=== PATIENT | female | born 1960 | race Caucasian/White ===

== ENCOUNTER 2025-08-16 12:50 | Observation (INO) | payer OTHER, SELFPAY ==
[2025-08-16] VITALS (24 sets, daily range): BP systolic 123–152; BP diastolic 61–88; PULSE 60–93; RESP 11–61; TEMP 36.4; O2SAT 97–100; BMI 25.9
--- NOTE | ~2025-08-16 | XR_ITS ---
Examination: XR chest 1V portable Clinical History: Pain Comparison: None Technique: Portable AP Findings: Heart size normal. Lungs clear. No acute bony abnormality. IMPRESSION: 1. No acute cardiopulmonary findings given portable technique. Reviewed, dictated and finalized at location R.
--- NOTE | ~2025-08-16 | CT_ITS ---
EXAMINATION: CT cervical spine wo con COMPARISON: None HISTORY: Head trauma TECHNIQUE: Axial images were obtained through the spine without IV contrast. Coronal, sagittal reconstruction images were obtained from the axial views. CT scan performed using dose optimization techniques including the following automated exposure control; adjustment of mA and/or kV; use of iterative reconstruction technique. Automatic exposure control was used to reduce radiation dose. Permanent radiation dose record is archived to PACS. FINDINGS: The vertebral heights are intact. No fracture or subluxation. The disc heights are intact. Soft tissues unremarkable. Impression: No acute abnormality. Reviewed, dictated and finalized at location A. Impression: No acute abnormality.
--- NOTE | ~2025-08-16 | CT_ITS ---
EXAMINATION: CT brain wo con DATE: 08/16/2025 13:35 INDICATION: Head trauma. Syncope. TECHNIQUE: Computed tomography (CT) of the head was performed without intravenous contrast. Sagittal and coronal reconstructions were performed. The mA was adjusted according to patient size. Iterative reconstruction technique was employed. The dose-length product was 605.33 mGy-cm. COMPARISON: None FINDINGS: No fracture. No acute intracranial hemorrhage, acute infarction or abnormal extra axial fluid collection. There is mild scattered white matter hypoattenuation consistent with chronic small vessel ischemic disease. Ventricles are normal and symmetric. No mass/mass effect. Changes of bilateral intraocular lens replacement. The orbits, paranasal sinuses and mastoid air cells are normal. IMPRESSION: 1. Normal aging brain. No fracture or acute intracranial process. Reviewed, dictated and finalized at location A.
--- NOTE | 2025-08-16 12:51 | ECG_ITS ---
Test Date: 2025-08-16 12:58:49 Measurements Intervals [place] Rate: 73 P: 32 IN: 207 QRS: 47 QRSD: 81 T: 39 QT: 419 QTc: 464 Interpretive Statements SINUS RHYTHM MINIMAL ST DEPRESSION [0.025+ mV ST DEPRESSION] ABNORMAL ECG No previous ECG available for comparison Electronically Signed On 08-16-2025 13:08:07 CDT by Elie Trejo M.D.
--- NOTE | 2025-08-16 13:06 | PC.NURSE ---
pt spouse continues to escalate his voice and yell at this diesel truck driver. Spouse verbalizing that he is an plant safety engineer and will gabrielle this hospital if she dies and or anything else happens to her while he is stuck out here and waiting to be taken in to the back. 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 Pt spouse continues to escalate, refuse to move from intake check in area so we may check in another pt. Pt spouse continues to verbalize he will gabrielle this rn. Pt spouse verbally aggressive to all staff including security.
--- NOTE | 2025-08-16 13:15 | ED.SYNCOPE ---
HPI - Syncope General Chief Complaint: Syncope Stated Complaint: syncope Time Seen by Provider: 08/16/25 13:15 Source: patient Mode of arrival: EMS Limitations: no limitations History of Present Illness HPI narrative: 65 years old white female came from home by ambulance with syncope. is telling me that patient was standing iron in close suddenly got dizzy, lightheadedness, then felt like going to pass out, tried to assist her to the floor, lost her balance and hit the left side of her head on the ground. Loss of consciousness for less than 10 seconds. Patient denies biting her tongue or urine incontinence. Currently feeling clammy, diaphoretic, dizziness lightheadedness. Patient report having similar symptoms often on for the last 14 years after diagnosis of menopause, today is the longest duration ever. Patient report associated nausea and vomiting. Closing eyes make her feel less dizzy at this time opening eyes make more dizziness Related Data Home Medications ?Medication ?Instructions ?Recorded ?Confirmed ?Last Taken ?Type escitalopram oxalate 10 mg tablet 10 mg PO DAILY 08/28/21 11/18/22 Unknown History (Lexapro) cholecalciferol (vitamin D3) 25 25 mcg PO DAILY 11/02/22 11/18/22 Unknown History mcg (1,000 unit) capsule rosuvastatin 10 mg tablet 10 mg PO DAILY 11/02/22 11/18/22 Unknown History magnesium 200 mg tablet 200 mg PO DAILY 11/18/22 11/18/22 Unknown History Allergies Allergy/AdvReac Type Severity Reaction Status Date / Time No Known Allergies Allergy Verified 11/18/22 09:46 Review of Systems Review of Systems: All systems reviewed & are unremarkable except as noted in HPI and below PMFSH Past Medical History Medical History Arthritis of knee, right History of lipoma removed 2021 Hyperlipidemia Vaginal delivery x2 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 Duct cell carcinoma Surgical History Surgical History History of lumpectomy right breast History of partial thyroidectomy [place] teeth extracted History of oral surgery Family History Family History Father Hypertension Heart problem Mother Depression Anxiety Thyroid disorder Alzheimer disease Hyperlipidemia Other Asthma child Grandparent Stomach cancer Hypertension Heart problem Hyperlipidemia Grandparent Cervical cancer Hypertension Cerebrovascular accident Social History Social History Smoking status: Never smoker Alcohol intake: current Drinks per week: 1 Substance use: never Living arrangements: with family Occupation/Education: retired Gender identity (if verbalized by the patient): Female Exam Narrative: General appearance: Well-developed, well-nourished Skin: Normal color, clammy skin Head: Normocephalic, left eyebrow bruises, hematoma Eyes: Clear conjunctiva ENT: Oropharynx normal, ears normal, nose normal Neck: Supple, nontender Chest and respiratory: Airway patent, no respiratory distress, no accessory muscle use Heart: Regular rate/rhythm Abdomen: Soft, nontender, no organomegaly, quiet bowel sounds Vascular: Normal peripheral pulses, normal capillary refill. Musculoskeletal: Normal range of motion, nontender back Neurologic: Alert and oriented ?3, [employer] is normal as tested, no gross motor deficit Course Vital Signs Vital signs: Vital Signs Pulse Rate 67 08/16/25 13:00 Respiratory Rate 12 08/16/25 13:00 Blood Pressure 145/78 H 08/16/25 13:00 Pulse Oximetry 100 08/16/25 13:00 Oxygen Delivery Room Air 08/16/25 13:00 Pulse Rate 73 08/16/25 14:30 Respiratory Rate 39 H 08/16/25 14:32 Blood Pressure 129/78 08/16/25 14:32 Pulse Oximetry 100 08/16/25 14:32 Oxygen Delivery Room Air 08/16/25 13:02 MDM - Syncope MDM Narrative Medical decision making narrative: Patient came to the ED with dizziness, vomiting, near-syncope, syncope prior to arrival Vital signs are stable Physical examination showing weak looking patient, pale, unable to open eyes because dizziness gets worse. Differential diagnosis include vertigo, orthostatic hypertension, cardiac arrhythmia, intracranial pathology, electrolyte imbalance, dehydration, urinary tract infection Blood workup today includes CBC, CMP, troponin, CPK, TSH showed no significant abnormality Chest x-ray showed no acute abnormality CT head without contrast showed no acute abnormality Patient's symptom resolved after Valium IV, Antivert and Zofran. 5 mg Valium IV caused hypoxia, patient required oxygen supplement at that time for 20 minutes then oxygen moved and saturation currently 100% on room air. Patient feels much better more awake, more alert and would like to have a meal. Admit to hospitalist Differential Diagnosis Differential diagnosis: Likely other (As above) Medical Records Attestation: I reviewed the patient's medical records. Lab Data Attestation: I reviewed the patient's lab results. 08/16/25 13:22 08/16/25 13:22 Labs: Lab Results 08/16/25 08/16/25 08/16/25 Range/Units 13:22 13:24 14:21 WBC 5.2 (4.5-10.0) K/mm3 RBC 4.57 (4.2-5.4) M/mm3 Hgb 14.0 (12.0-15.0) g/dL Hct 41.6 (37.0-47.0) % MCV 91.0 (80-100) fl MCH 30.6 (26-34) pg MCHC 33.7 (32-36) g/dl RDW 12.3 (11.5-14.5) % Plt Count 328 (150-375) k/mm3 MPV 9.4 (7.4-10.4) fl Immature Gran % (Auto) 0.4 (0-0.5) % Neut % (Auto) 42.9 L (45.5-73.1) % Lymph % (Auto) 44.3 H (18.3-44.2) % [place] % (Auto) 8.9 H (2.6-8.5) % Eos % (Auto) 2.9 (0-4.4) % Baso % (Auto) 0.6 (0.2-1.2) % Lymph # (Auto) 2.28 (0.9-3.2) K/mm3 [place] # (Auto) 0.5 (0.1-0.6) K/mm3 Eos # (Auto) 0.2 (0-0.3) K/mm3 Baso # (Auto) 0.0 (0.0-0.1) K/mm3 Abs Immat Gran (auto) 0.02 (0.00-0.031) K/mm3 Absolute Neuts (auto) 2.2 (1.3-6.7) K/mm3 Absolute Nucleated RBC 0.000 (0.0-0.012) K/mm3 Nucleated RBC % 0.0 (0.0-0.2) % PT 12.9 (11.1-14.7) Seconds INR 1.0 APTT 24.4 (22.3-36.8) Seconds Sodium 138 (137-145) mmol/L Potassium 3.7 (3.4-5.0) mmol/L Chloride 105 (98-107) mmol/L Carbon Dioxide 21 L (22-30) mmol/L Anion Gap 12 (4-12) mmol/L BUN 16 (7-17) mg/dL Creatinine 0.69 L (0.7-1.0) mg/dL Estim Creat Clear Calc 61 ml/min Estimated GFR > 60 (59 - ) Glucose 164 H (65-110) mg/dL Calcium 9.8 (8.4-10.2) mg/dL Total Bilirubin 1.4 H (0.2-1.3) mg/dL AST 33 (14-36) U/L ALT 27 (6-35) U/L Alkaline Phosphatase 71 (38-126) U/L Total Creatine Kinase 73 Cancelled (30-135) U/L Troponin I < 0.012 Cancelled (0.000-0.034) ng/mL Total Protein 7.4 (6.3-8.2) g/dL Albumin 4.5 (3.5-5.1) g/dL TSH 3.210 Cancelled (0.465-4.680) uIU/mL Urine Color Yellow (Yellow) Urine Appearance Clear (Clear) Urine pH 6.5 (5.0-9.0) Ur Specific [place] 1.022 (1.001-1.035) Urine Protein Negative (Negative) mg/dL Urine Glucose (UA) Negative (Negative) mg/dL Urine Ketones 2+ H (Negative) mg/dL Ur Blood (Man) Negative (Negative) Urine Nitrate Negative (Negative) Urine Bilirubin Negative (Negative) Urine Urobilinogen 1.0 (<2.0) mg/dL Leukocyte Esterase Rfl Negative (Negative) TOMY/UL Urine Opiates Screen (Negative) Urine Methadone Screen Ur Barbiturates Screen Ur Phencyclidine Scrn (Negative) Ur Amphetamine Screen U Benzodiazepines Scrn (Negative) Urine Cocaine Screen (Negative) U Cannabinoids Screen Ethyl Alcohol < 10 (<10) mg/dL 08/16/25 Range/Units 14:22 WBC (4.5-10.0) K/mm3 RBC (4.2-5.4) M/mm3 Hgb (12.0-15.0) g/dL Hct (37.0-47.0) % MCV (80-100) fl MCH (26-34) pg MCHC (32-36) g/dl RDW (11.5-14.5) % Plt Count (150-375) k/mm3 MPV (7.4-10.4) fl Immature Gran % (Auto) (0-0.5) % Neut % (Auto) (45.5-73.1) % Lymph % (Auto) (18.3-44.2) % [place] % (Auto) (2.6-8.5) % Eos % (Auto) (0-4.4) % Baso % (Auto) (0.2-1.2) % Lymph # (Auto) (0.9-3.2) K/mm3 [place] # (Auto) (0.1-0.6) K/mm3 Eos # (Auto) (0-0.3) K/mm3 Baso # (Auto) (0.0-0.1) K/mm3 Abs Immat Gran (auto) (0.00-0.031) K/mm3 Absolute Neuts (auto) (1.3-6.7) K/mm3 Absolute Nucleated RBC (0.0-0.012) K/mm3 Nucleated RBC % (0.0-0.2) % PT (11.1-14.7) Seconds INR APTT (22.3-36.8) Seconds Sodium (137-145) mmol/L Potassium (3.4-5.0) mmol/L Chloride (98-107) mmol/L Carbon Dioxide (22-30) mmol/L Anion Gap (4-12) mmol/L BUN (7-17) mg/dL Creatinine (0.7-1.0) mg/dL Estim Creat Clear Calc ml/min Estimated GFR (59 - ) Glucose (65-110) mg/dL Calcium (8.4-10.2) mg/dL Total Bilirubin (0.2-1.3) mg/dL AST (14-36) U/L ALT (6-35) U/L Alkaline Phosphatase (38-126) U/L Total Creatine Kinase (30-135) U/L Troponin I (0.000-0.034) ng/mL Total Protein (6.3-8.2) g/dL Albumin (3.5-5.1) g/dL TSH (0.465-4.680) uIU/mL Urine Color (Yellow) Urine Appearance (Clear) Urine pH (5.0-9.0) Ur Specific [place] (1.001-1.035) Urine Protein (Negative) mg/dL Urine Glucose (UA) (Negative) mg/dL Urine Ketones (Negative) mg/dL Ur Blood (Man) (Negative) Urine Nitrate (Negative) Urine Bilirubin (Negative) Urine Urobilinogen (<2.0) mg/dL Leukocyte Esterase Rfl (Negative) TOMY/UL Urine Opiates Screen Negative (Negative) Urine Methadone Screen Pending Ur Barbiturates Screen Pending Ur Phencyclidine Scrn Negative (Negative) Ur Amphetamine Screen Pending U Benzodiazepines Scrn Negative (Negative) Urine Cocaine Screen Negative (Negative) U Cannabinoids Screen Pending Ethyl Alcohol (<10) mg/dL Imaging Data Radiologist's impression: Impressions Head CT 08/16/25 13:46 IMPRESSION: 1. Normal aging brain. No fracture or acute intracranial process. Chest X-Ray 08/16/25 13:56 IMPRESSION: 1. No acute cardiopulmonary findings given portable technique. ECG Data EKG #1: Attestation: I personally reviewed and interpreted this ECG as follows: ECG completion date: 08/16/25 Interpretation: Normal sinus rhythm 73 beats per minute, minimal ST-T depression, abnormal EKG, no previous EKG available for comparison Critical Care Time Critical Care Time Critical Care Time: Yes Total Critical Care Time: 30 Discharge Plan Discharge Clinical Impression: Syncope, Vertigo Patient Disposition: Still a Patient Condition: Improved Additional Instructions: Admit to hospitalist Patient Language: Nepali Prescriptions: No Action escitalopram oxalate [Lexapro] 10 mg tablet 10 mg PO DAILY rosuvastatin 10 mg tablet 10 mg PO DAILY cholecalciferol (vitamin D3) 25 mcg (1,000 unit) capsule 25 mcg PO DAILY magnesium 200 mg tablet 200 mg PO DAILY valacyclovir 1 gram tablet 1,000 mg PO DAILY Qty: 90 2RF Follow-up/Referrals: PHYSICIAN NOT ON STAFF,NONSTAFF [Non-Staff]
[2025-08-16 13:36] LABS: Hematocrit 41.6 % (37.0-47.0); Hemoglobin 14.0 g/dL (12.0-15.0); Immature Granulocyte Percent A 0.4 % (0-0.5); Lymphocytes Absolute Auto 2.28 K/mm3 (0.9-3.2); Mean Corpuscular HGB Conc 33.7 g/dl (32-36); Mean Corpuscular Hemoglobin 30.6 pg (26-34); Mean Corpuscular Volume 91.0 fl (80-100); Nucleated Red Blood Cells Absolute Auto 0.000 K/mm3 (0.0-0.012); Nucleated Red Blood Cells Perc 0.0 % (0.0-0.2); Platelet Count Result 328 k/mm3 (150-375); Red Blood Count 4.57 M/mm3 (4.2-5.4); White Blood Count 5.2 K/mm3 (4.5-10.0)
[2025-08-16] MEDS: diazePAM INJ (*CRX) 10 MG/2 ML SYRINGE 5 MG IV PUSH (13:38)
[2025-08-16] MEDS: ONDANSETRON INJ 4 MG/2 ML VIAL IV PUSH (13:38)
[2025-08-16] MEDS: MECLIZINE HCL 25 MG TABLET PO ×2 (13:39→16:34)
[2025-08-16] MEDS: SODIUM CHLORIDE 0.9% IV 1,000 ML 999 ML IV CONT (13:40)
[2025-08-16 13:47] LABS: Alanine Aminotransferase 27 U/L (6-35); Albumin Level 4.5 g/dL (3.5-5.1); Alkaline Phosphatase 71 U/L (38-126); Anion Gap 12 mmol/L (4-12); Aspartate Amino Transferase 33 U/L (14-36); Bilirubin,Total 1.4 mg/dL (0.2-1.3); Blood Urea Nitrogen 16 mg/dL (7-17); Calcium 9.8 mg/dL (8.4-10.2); Carbon Dioxide 21 mmol/L (22-30); Chloride 105 mmol/L (98-107); Creatine Kinase 73 U/L (30-135); Estimated CRCL calculation 61 ml/min; Estimated Glomerular Filt Rate > 60; Glucose 164 mg/dL (65-110); Potassium 3.7 mmol/L (3.4-5.0); Sodium 138 mmol/L (137-145); Total Protein 7.4 g/dL (6.3-8.2)
[2025-08-16 13:57] LABS: INR 1.0; Partial Thromboplastin Time 24.4 Seconds (22.3-36.8); Prothrombin Time 12.9 Seconds (11.1-14.7)
[2025-08-16 13:59] LABS: Troponin I < 0.012 ng/mL (0.000-0.034)
--- NOTE | 2025-08-16 14:08 | PC.NURSE ---
patient was having apnic episodes, states that she reacts poorly to valium- prior to med administration this rn and the physician discussed that the patient would be getting the valium both patient and verbalized understanding of the medication and use of the medication
[2025-08-16 14:18] LABS: Thyroid Stimulating Hormone 3.210 uIU/mL (0.465-4.680)
[2025-08-16 14:29] LABS: Add Urine Microscopic? NO; Appearance Urine Clear (Clear); Glucose Urine UA Negative (Negative); Leukocyte Esterase Ur Negative LEU/UL (Negative); Nitrate Urine Negative (Negative); Specific Grav Ur 1.022 (1.001-1.035)
[2025-08-16 15:08] LABS: Cannabinoid Screen Urine Negative (Negative)
--- NOTE | 2025-08-16 15:24 | PC.NURSE ---
standard reg diet dinner tray ordered
--- NOTE | 2025-08-16 16:02 | P.HP_ITS ---
H&P: HPI History of Present Illness Date/Time: 08/16/25 16:02 Chief Complaint: Syncope Narrative: 65-year-old female past medical history of hyperlipidemia and duct cell carcinoma presents the hospital syncope. Patient was standing iron in close when all of sudden she became dizzy and passed out. Patient states that the more she did not eat however at the time she was not feeling hungry. Patient states that sometime she gets dizzy with yoga and Pilates. Patient still complains of severe weakness however dizziness has improved. Denies nausea vomiting fever chills. Lab work shows elevated glucose at 164,, CBC, BMP within normal limits, urinary toxicology negative ethanol level negative, EKG shows sinus rhythm with minimal ST depression. Head CT with no acute findings, neck CT with no acute findings. Review of Systems Review of Systems: 12 systems were reviewed and are negativ e except for as per HPI. 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 Duct cell carcinoma Surgical History Surgical History History of lumpectomy right breast History of partial thyroidectomy [place] teeth extracted History of oral surgery Family History Family History Father Hypertension Heart problem Mother Depression Anxiety Thyroid disorder Alzheimer disease Hyperlipidemia Other Asthma child Grandparent Stomach cancer Hypertension Heart problem Hyperlipidemia Grandparent Cervical cancer Hypertension Cerebrovascular accident Social History Social History Smoking status: Never smoker Alcohol intake: current Drinks per week: 2 Substance use: never Lack of Transportation: No Lack of Food: Never True Current Housing: I Have Housing Concerned About Future Housing: No Difficulty Paying Gas/Electric Bills: No Difficulty Paying for Meds: No Currently Unemployed: No Education: Master's Degree or Higher Difficulty w/ Childcare or Family Care: No Living arrangements: with family Occupation/Education: retired Gender identity (if verbalized by the patient): Female Spiritual care concerns: No Meds Home Medications and Allergies Home Medications ?Medication ?Instructions ?Recorded ?Confirmed ?Type rosuvastatin 10 mg tablet 10 mg PO DAILY 11/02/2207/29 History multivitamin (Daily Multi-Vitamin 1 tablet PO DAILY 08/16/25 History tablet) valacyclovir 1 gram tablet 1,000 mg PO DAILY PRN Herpe s flare 08/16/25 08/16/25 History ups Allergies Allergy/AdvReac Type Severity Reaction Status Date / Time diazepam (From Valium) AdvReac Severe Stopped Verified 08/16/25 20:48 Breathing Vital Signs Vital Signs - 24 hr 08/16/25 13:00 08/16/25 13:00 08/16/25 13:00 Pulse Rate 67 68 Respiratory Rate 12 11 L Blood Pressure 145/78 H Pulse Oximetry 100 100 100 Oxygen Delivery Room Air 08/16/25 13:02 08/16/25 13:02 08/16/25 13:02 Pulse Rate 67 66 67 Respiratory Rate 13 12 Blood Pressure 145/78 H 145/78 H Pulse Oximetry 100 100 Oxygen Delivery Room Air 08/16/25 13:20 08/16/25 13:37 08/16/25 13:39 Pulse Rate 60 93 72 Respiratory Rate 19 20 Blood Pressure 152/75 H Pulse Oximetry 100 97 99 Oxygen Delivery 08/16/25 14:00 08/16/25 14:02 08/16/25 14:15 Pulse Rate 72 72 69 Respiratory Rate 28 H 19 14 Blood Pressure 133/69 Pulse Oximetry 100 100 100 Oxygen Delivery 08/16/25 14:17 08/16/25 14:30 08/16/25 14:32 Pulse Rate 69 73 Respiratory Rate 24 H 45 H 39 H Blood Pressure 143/88 H 129/78 Pulse Oximetry 100 100 100 Oxygen Delivery 08/16/25 14:33 08/16/25 14:45 08/16/25 14:47 Pulse Rate 67 69 Respiratory Rate 61 H 24 H 16 Blood Pressure 130/74 Pulse Oximetry 100 99 100 Oxygen Delivery 08/16/25 15:00 08/16/25 15:02 08/16/25 15:15 Pulse Rate 61 71 62 Respiratory Rate 18 17 18 Blood Pressure 137/74 Pulse Oximetry 100 100 Oxygen Delivery 08/16/25 15:17 Pulse Rate 67 Respiratory Rate 16 Blood Pressure 134/78 Pulse Oximetry Oxygen Delivery Exam Narrative: General: well appearing, appears stated age. HEENT: normocephalic, atraumatic. Mucous membranes moist. EOMI, PERRLA, bilateral sclera anicteric, no conjunctival injection. Neck supple without JVD, lymphadenopathy, or bruit. Respiratory: clear to ascultation bilaterally. No rales/rhonic/wheezes. Cardiovascular: Regular rate and rhythm, normal S1-S2 upon ascultation. No murmurs, rubs, or clicks. PMI is nondisplaced, capillary refill less than 3 second. Abdomen: Soft, round, no pulsatile masses, nondistended and nontender. No rebound, no guarding. No CVA tenderness, no hepatosplenomegaly. Bowel sounds present to all four quadrants. No high pitch or tinkling sounds, resonant to percussion. Extremities: No cyanosis, clubbing, or edema present. Pulses are palpable 2/2. Active ROM to all four extremities. Neuro: Alert and orientated x 4. PERRLA. Cranial nerves 2-12 intact without focal deficit. Skin: Warm, dry, and intact, without rash, erythema, or lesion. Psych: pleasant, cooperative, normal speech, normal affect, no hallucinations, no dysarthia H&P: Results Labs Labs: Short CBC 08/16/25 Range/Units 13:22 WBC 5.2 (4.5-10.0) K/mm3 Hgb 14.0 (12.0-15.0) g/dL Hct 41.6 (37.0-47.0) % Plt Count 328 (150-375) k/mm3 BMP 08/16/25 13:22 Sodium 138 Potassium 3.7 Chloride 105 Carbon Dioxide 21 L BUN 16 Creatinine 0.69 L Glucose 164 H Calcium 9.8 Cardiac Enzymes 08/16/25 08/16/25 Range/Units 13:22 13:24 Total Creatine Kinase 73 Cancelled (30-135) U/L Troponin I < 0.012 Cancelled (0.000-0.034) ng/mL Liver Function 08/16/25 Range/Units 13:22 Total Bilirubin 1.4 H (0.2-1.3) mg/dL AST 33 (14-36) U/L ALT 27 (6-35) U/L Alkaline Phosphatase 71 (38-126) U/L Albumin 4.5 (3.5-5.1) g/dL Urine 08/16/25 Range/Units 14:21 Urine Color Yellow (Yellow) Urine Appearance Clear (Clear) Urine pH 6.5 (5.0-9.0) Ur Specific [place] 1.022 (1.001-1.035) Urine Protein Negative (Negative) mg/dL Urine Glucose (UA) Negative (Negative) mg/dL Assessment and Plan Assessment and plan (1) Vertigo: Code(s): R42 - Dizziness and giddiness Status: Acute Assessment and Plan: Meclizine Patient had severe apnea with Valium will DC (2) Syncope: Code(s): R55 - Syncope and collapse Status: Acute Assessment and Plan: TIA versus hypovolemia versus other Telemetry monitoring Echocardiogram pending Fall precautions Orthostatic vital signs MRI pending Frequent neuro checks (3) Hyperglycemia: Code(s): R73.9 - Hyperglycemia, unspecified Status: Acute Assessment and Plan: Hemoglobin A1c pending Quality VTE Prophylaxis VTE prophylaxis: mechanical ordered Hospitalist MIPS Advance Care Plan I have confirmed that the patient's Advanced Care Plan is present, code status is documented, or surrogate decision maker is listed in patient medical record.: Yes Medication Reconciliation I have utilized all available resources to obtain, update and review the patients current medications (includes all prescriptions, OTC, herbals, cannabis, and nutritional supplements).: Yes
--- NOTE | 2025-08-16 16:30 | ADMGEN ---
This patient, Rebel Calles, was admitted to Medical Room 245-. Patient/family oriented to hospital policies and general routines including ID bracelet, bed and alarms, visiting hours, pain management, procedures, bathroom and other care routines, personal items, smoking policy, room service/diet, and visiting hours. Information on how to activate the Rapid Response Team has been discussed. Patient/Family are encouraged to report perceived risks to care and to ask questions if they do not understand what they are told or what they should do.
[2025-08-16] MEDS: ACETAMINOPHEN 325 MG TABLET 650 MG PO (16:34)
--- NOTE | 2025-08-16 17:40 | PC.NURSE ---
report called to Yoshi SEGURA at [phone]
[2025-08-17] VITALS (7 sets, daily range): BP systolic 124–142; BP diastolic 63–73; PULSE 67–86; RESP 18; TEMP 36.5–36.7; O2SAT 100
--- NOTE | 2025-08-17 | ECHO_ITS ---
Patient Info Name: Rebel Calles Age: 65 years : 1960 Gender: Female Ht: 64 in Wt: 150 lbs BSA: 1.77 m2 HR: 70 bpm BP: 124 / 73 mmHg Heart Rhythm: Sinus Rhythm Technical Quality: Good Exam Date: 08/17/2025 11:22 AM Patient Status: O Admit Date: 08/16/2025 Exam Type: CA echo doppler w bubble study Complete two-dimensional, color flow and Doppler transthoracic echocardiogram is performed with agitated saline. Staff Referring Physician: Sulema Ray Production Foreman: Viri Gonzalez Attending Provider: Fabiana Dumas Contrast/Agitated Saline Contrast/Ag. Saline: Agitated Saline Amount: 20.00 ml Administered By: Viri Gonzalez Summary 1. Normal left and right ventricular systolic and diastolic function. 2. Mild sclerosis of the aortic valve with no functional impairment. 3. Trivial mitral regurgitation. Left Ventricle Left ventricular chamber dimension is normal. Left ventricular systolic function is normal, estimated at 60-65. The left ventricular diastolic function is normal. Right Ventricle Right ventricular chamber dimension is normal. Left Atria Left atrial chamber dimension is normal. Right Atria Right atrial chamber dimension is normal. Atrial Septum Intact interatrial septum visualized by agitated saline imaging. Aortic Valve The aortic valve is trileaflet. There is mild aortic valve sclerosis. Pulmonic Valve The pulmonic valve is normal. Mitral Valve The mitral valve has normal leaflets. There is trace mitral valve regurgitation. Tricuspid Valve The tricuspid valve leaflets are normal. Pericardium/Pleural The pericardium appears normal. Aorta The aortic root size at the sinus of Valsalva is normal. Left Ventricular Outflow Tract Name Value Normal LVOT 2D LVOT Diameter 2.0 cm LVOT Doppler LVOT Peak Velocity 109 cm/s LVOT Peak Gradient 5 mmHg LVOT Mean Gradient 3 mmHg LVOT VTI 24 cm LVOT VTI/AV VTI Ratio 0.7 LVOT Stroke Volume 74 ml LVOT CO 5.2 l/min LVOT CI 2.9 l/min/m2 Pulmonic Valve Name Value Normal RVOT Doppler RVOT Peak Velocity 83 cm/s RVOT Peak Gradient 3 mmHg PV Doppler PV Peak Velocity 97 cm/s PV Peak Gradient 4 mmHg Mitral Valve Name Value Normal MV Diastolic Function MV E Peak Velocity 84 cm/s MV A Peak Velocity 77 cm/s MV E/A 1.1 MV Decel Time (PW) 243 ms MV Annular TDI MV E/e' (Septal) 7.5 MV E/e' (Lateral) 7.3 MV E/e' (Average) 7.4 Tricuspid Valve Name Value Normal TV Regurgitation Doppler TR Peak Velocity 246 cm/s TR Peak Gradient 24 mmHg Aortic Valve Name Value Normal AV Doppler AV Peak Velocity 148 cm/s AV Peak Gradient 9 mmHg AV Mean Gradient 5 mmHg AV VTI 33 cm AV Area (Cont Eq VTI) 2.2 cm2 >=3.0 AV Area (Cont Eq Erasto) 2.3 cm2 AV DI (Erasto) 0.74 AV Regurgitation 2D LVOT Area 3.0 cm2 Ventricles Name Value Normal LV Dimensions 2D/MM IVS Diastolic Thickness (2D) 0.8 cm 0.6-1.0 LVID Diastole (2D) 4.0 cm 3.8-5.2 LVIW Diastolic Thickness (2D) 1.0 cm 0.6-0.9 LVID Systole (2D) 2.8 cm 2.2-3.5 LVOT Diameter 2.0 cm LV Mass (2D Cubed) 109.90 g 67.00-162.00 LV Mass Index (2D Cubed) 62 g/m2 43-95 Relative Wall Thickness (2D) 0.48 <=0.42 LV Fractional Shortening/Ejection Fraction 2D/MM LV Fractional Shortening (2D) 31 % 27-45 LV EF (2D Teichholz) 59 % LV Diastolic Volume (4C MOD) 80 ml LV EF (4C MOD) 64 % LV Diastolic Volume (2C MOD) 67 ml LV EF (2C MOD) 54 % LV Diastolic Volume (BP MOD) 77 ml 46-106 LV Diastolic Volume Index (BP MOD) 43 ml/m2 29-61 LV Systolic Volume (BP MOD) 30 ml 14-42 LV Systolic Volume Index (BP MOD) 17 ml/m2 8-24 LV EF (BP MOD) 61 % 54-74 LV Diastolic Length (4C) 8.6 cm LV Systolic Length (4C) 7.1 cm LV Stroke Volume (4C MOD) 52 ml Atria Name Value Normal LA Dimensions LA Volume (4C A-L) 24 ml LA Volume (BP A-L) 34 ml Report Signatures
[2025-08-17 05:26] LABS: Hematocrit 37.7 % (37.0-47.0); Hemoglobin 12.3 g/dL (12.0-15.0); Immature Granulocyte Percent A 0.4 % (0-0.5); Lymphocytes Absolute Auto 1.69 K/mm3 (0.9-3.2); Mean Corpuscular HGB Conc 32.6 g/dl (32-36); Mean Corpuscular Hemoglobin 30.8 pg (26-34); Mean Corpuscular Volume 94.5 fl (80-100); Nucleated Red Blood Cells Absolute Auto 0.000 K/mm3 (0.0-0.012); Nucleated Red Blood Cells Perc 0.0 % (0.0-0.2); Platelet Count Result 280 k/mm3 (150-375); Red Blood Count 3.99 M/mm3 (4.2-5.4); White Blood Count 4.9 K/mm3 (4.5-10.0)
[2025-08-17 05:33] LABS: Hemoglobin A1C 5.6 % (<5.7)
[2025-08-17 05:53] LABS: Anion Gap 5 mmol/L (4-12); Blood Urea Nitrogen 14 mg/dL (7-17); Calcium 9.0 mg/dL (8.4-10.2); Carbon Dioxide 24 mmol/L (22-30); Chloride 109 mmol/L (98-107); Estimated CRCL calculation 64 ml/min; Estimated Glomerular Filt Rate > 60; Glucose 96 mg/dL (65-110); Potassium 3.7 mmol/L (3.4-5.0); Sodium 138 mmol/L (137-145)
[2025-08-17] MEDS: ACETAMINOPHEN 325 MG TABLET 650 MG PO (09:13)
--- NOTE | 2025-08-17 10:05 | PC.NURSE ---
RN spoke to MD Boyle and was asked to put consult in for material control associate.
--- NOTE | 2025-08-17 10:07 | P.PNIM_ITS ---
Progress Note: A&P Assessment and Plan (1) Vertigo: Code(s): R42 - Dizziness and giddiness Status: Acute Assessment and Plan: Meclizine monitor (2) Syncope: Code(s): R55 - Syncope and collapse Status: Acute Assessment and Plan: TIA versus hypovolemia versus other Telemetry monitoring Echocardiogram pending Orthostatic vital signs wnl MRI pending No overnight events Cardiology consulted in case patient needs event monitor (3) Hyperglycemia: Code(s): R73.9 - Hyperglycemia, unspecified Status: Acute Assessment and Plan: A1c 5.6 Diabetes ruled out monitor Plan DVT prophylaxis on Sq lovenox Subjective Date/time seen: 08/17/25 10:07 Interval history: Comfortable at bedside Awaiting ECHO, cardiology consulted in case patient needs event monitor Review of Systems Review of Systems: 12 systems were reviewed and are negativ e except for as per HPI. Exam Narrative: General: well appearing, appears stated age. HEENT: normocephalic, atraumatic. Mucous membranes moist. EOMI, PERRLA, bilateral sclera anicteric, no conjunctival injection. Neck supple without JVD, lymphadenopathy, or bruit. Respiratory: clear to ascultation bilaterally. No rales/rhonic/wheezes. Cardiovascular: Regular rate and rhythm, normal S1-S2 upon ascultation. No murmurs, rubs, or clicks. PMI is nondisplaced, capillary refill less than 3 second. Abdomen: Soft, round, no pulsatile masses, nondistended and nontender. No rebound, no guarding. No CVA tenderness, no hepatosplenomegaly. Bowel sounds present to all four quadrants. No high pitch or tinkling sounds, resonant to percussion. Extremities: No cyanosis, clubbing, or edema present. Pulses are palpable 2/2. Active ROM to all four extremities. Neuro: Alert and orientated x 4. PERRLA. Cranial nerves 2-12 intact without focal deficit. Skin: Warm, dry, and intact, without rash, erythema, or lesion. Psych: pleasant, cooperative, normal speech, normal affect, no hallucinations, no dysarthia Objective Data Vital Signs Vital Signs: Vital Signs - 24 hr 08/16/25 13:00 08/16/25 13:00 08/16/25 13:00 Temperature Pulse Rate 67 68 Respiratory Rate 12 11 L Blood Pressure 145/78 H Pulse Oximetry 100 100 100 Oxygen Delivery Room Air 08/16/25 13:02 08/16/25 13:02 08/16/25 13:02 Temperature Pulse Rate 67 66 67 Respiratory Rate 13 12 Blood Pressure 145/78 H 145/78 H Pulse Oximetry 100 100 Oxygen Delivery Room Air 08/16/25 13:20 08/16/25 13:37 08/16/25 13:39 Temperature Pulse Rate 60 93 72 Respiratory Rate 19 20 Blood Pressure 152/75 H Pulse Oximetry 100 97 99 Oxygen Delivery 08/16/25 14:00 08/16/25 14:02 08/16/25 14:15 Temperature Pulse Rate 72 72 69 Respiratory Rate 28 H 19 14 Blood Pressure 133/69 Pulse Oximetry 100 100 100 Oxygen Delivery 08/16/25 14:17 08/16/25 14:30 08/16/25 14:32 Temperature Pulse Rate 69 73 Respiratory Rate 24 H 45 H 39 H Blood Pressure 143/88 H 129/78 Pulse Oximetry 100 100 100 Oxygen Delivery 08/16/25 14:33 08/16/25 14:45 08/16/25 14:47 Temperature Pulse Rate 67 69 Respiratory Rate 61 H 24 H 16 Blood Pressure 130/74 Pulse Oximetry 100 99 100 Oxygen Delivery 08/16/25 15:00 08/16/25 15:02 08/16/25 15:15 Temperature Pulse Rate 61 71 62 Respiratory Rate 18 17 18 Blood Pressure 137/74 Pulse Oximetry 100 100 Oxygen Delivery 08/16/25 15:17 08/16/25 20:00 08/16/25 20:00 Temperature 97.6 F Pulse Rate 67 72 81 Respiratory Rate 16 18 Blood Pressure 134/78 136/84 Pulse Oximetry 97 Oxygen Delivery 08/16/25 20:00 08/16/25 21:17 08/16/25 21:18 Temperature 97.6 F 97.6 F Pulse Rate 68 82 Respiratory Rate 18 18 Blood Pressure 146/74 H 152/84 H Pulse Oximetry 99 100 Oxygen Delivery Room Air 08/16/25 21:23 08/16/25 21:50 08/16/25 23:29 Temperature 97.6 F 97.6 F Pulse Rate 72 73 Respiratory Rate 18 18 Blood Pressure 136/84 123/61 Pulse Oximetry 97 99 99 Oxygen Delivery Autopap 08/17/25 00:00 08/17/25 04:00 08/17/25 04:39 Temperature 97.7 F Pulse Rate 72 67 86 Respiratory Rate 18 Blood Pressure 124/73 Pulse Oximetry 100 Oxygen Delivery 08/17/25 08:00 08/17/25 08:00 08/17/25 08:24 Temperature Pulse Rate 77 80 74 Respiratory Rate Blood Pressure 133/70 128/63 Pulse Oximetry Oxygen Delivery 08/17/25 08:25 08/17/25 08:25 Temperature 98.1 F Pulse Rate 74 77 Respiratory Rate 18 Blood Pressure 128/63 142/69 H Pulse Oximetry 100 Oxygen Delivery Intake/Output Intake/Output: Intake & Output 08/14/25 08/15/25 08/16/25 08/17/25 23:59 23:59 23:59 23:59 Intake Total 1360 630 Output Total 75 Balance 1285 630 Meds/Results Medications: Active Medications Generic Name Dose Route Start Last Admin Trade Name Freq PRN Reason Stop Dose Admin Acetaminophen 650 mg 08/16/25 15:02 08/17/25 09:13 Acetaminophen 325 Mg Tablet PO 650 mg Q4H PRN Administration Mild Pain (1-3) or Fever Meclizine HCl 25 mg 08/16/25 20:52 Meclizine Hcl 25 Mg Tablet PO TID PRN Dizziness Ondansetron HCl 4 mg 08/16/25 15:02 Ondansetron Inj 4 Mg/2 Ml Vial IV PUSH Q4H PRN Nausea Perflutren Lipid Microsphere 0 ml 08/16/25 19:15 Perflutren Lipid Microspheres 1.5 Ml Vial Diluted To 10 Ml Total Volume IV PUSH 08/19/25 19:15 ONCE PRN adequate visualization Protocol Perflutren Lipid Microsphere 0 ml 08/16/25 20:49 Perflutren Lipid Microspheres 1.5 Ml Vial Diluted To 10 Ml Total Volume IV PUSH 08/19/25 20:49 ONCE PRN adequate visualization Protocol Rosuvastatin Calcium 10 mg 08/17/25 09:00 08/17/25 09:14 Rosuvastatin 10 Mg Tablet PO Not Given DAILY KARI Radiology Results: ITS Impressions Head CT 08/16/25 13:46 IMPRESSION: 1. Normal aging brain. No fracture or acute intracranial process. Chest X-Ray 08/16/25 13:56 IMPRESSION: 1. No acute cardiopulmonary findings given portable technique. Cervical Spine CT 08/16/25 13:59 Impression: No acute abnormality. Labs Labs: Laboratory Results - last 24 hr 08/16/25 08/16/25 08/16/25 13:22 13:24 14:21 WBC 5.2 RBC 4.57 Hgb 14.0 Hct 41.6 MCV 91.0 MCH 30.6 MCHC 33.7 RDW 12.3 Plt Count 328 MPV 9.4 Immature Gran % (Auto) 0.4 Neut % (Auto) 42.9 L Lymph % (Auto) 44.3 H Walker % (Auto) 8.9 H Eos % (Auto) 2.9 Baso % (Auto) 0.6 Lymph # (Auto) 2.28 Walker # (Auto) 0.5 Eos # (Auto) 0.2 Baso # (Auto) 0.0 Abs Immat Gran (auto) 0.02 Absolute Neuts (auto) 2.2 Absolute Nucleated RBC 0.000 Nucleated RBC % 0.0 PT 12.9 INR 1.0 APTT 24.4 D-Dimer < 0.27 Sodium 138 Potassium 3.7 Chloride 105 Carbon Dioxide 21 L Anion Gap 12 BUN 16 Creatinine 0.69 L Estim Creat Clear Calc 61 Estimated GFR > 60 Glucose 164 H Hemoglobin A1c Calcium 9.8 Total Bilirubin 1.4 H AST 33 ALT 27 Alkaline Phosphatase 71 Total Creatine Kinase 73 Cancelled Troponin I < 0.012 Cancelled Total Protein 7.4 Albumin 4.5 TSH 3.210 Cancelled Urine Color Yellow Urine Appearance Clear Urine pH 6.5 Ur Specific [place] 1.022 Urine Protein Negative Urine Glucose (UA) Negative Urine Ketones 2+ H Ur Blood (Man) Negative Urine Nitrate Negative Urine Bilirubin Negative Urine Urobilinogen 1.0 Leukocyte Esterase Rfl Negative Urine Opiates Screen Urine Methadone Screen Ur Barbiturates Screen Ur Phencyclidine Scrn Ur Amphetamine Screen U Benzodiazepines Scrn Urine Cocaine Screen U Cannabinoids Screen Ethyl Alcohol < 10 08/16/25 08/17/25 14:22 04:34 WBC 4.9 RBC 3.99 L Hgb 12.3 Hct 37.7 MCV 94.5 MCH 30.8 MCHC 32.6 RDW 12.4 Plt Count 280 MPV 9.5 Immature Gran % (Auto) 0.4 Neut % (Auto) 53.1 Lymph % (Auto) 34.5 Walker % (Auto) 9.2 H Eos % (Auto) 2.2 Baso % (Auto) 0.6 Lymph # (Auto) 1.69 Walker # (Auto) 0.5 Eos # (Auto) 0.1 Baso # (Auto) 0.0 Abs Immat Gran (auto) 0.02 Absolute Neuts (auto) 2.6 Absolute Nucleated RBC 0.000 Nucleated RBC % 0.0 PT INR APTT D-Dimer Sodium 138 Potassium 3.7 Chloride 109 H Carbon Dioxide 24 Anion Gap 5 BUN 14 Creatinine 0.66 L Estim Creat Clear Calc 64 Estimated GFR > 60 Glucose 96 Hemoglobin A1c 5.6 Calcium 9.0 Total Bilirubin AST ALT Alkaline Phosphatase Total Creatine Kinase Troponin I Total Protein Albumin TSH Urine Color Urine Appearance Urine pH Ur Specific [place] Urine Protein Urine Glucose (UA) Urine Ketones Ur Blood (Man) Urine Nitrate Urine Bilirubin Urine Urobilinogen Leukocyte Esterase Rfl Urine Opiates Screen Negative Urine Methadone Screen Negative Ur Barbiturates Screen Negative Ur Phencyclidine Scrn Negative Ur Amphetamine Screen Negative U Benzodiazepines Scrn Negative Urine Cocaine Screen Negative U Cannabinoids Screen Negative Ethyl Alcohol Quality VTE Prophylaxis VTE prophylaxis: mechanical ordered
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
--- NOTE | 2025-08-18 09:19 | PM.DS ---
DS: Admitting Diagnosis Discharge Date 08/17/25 Admitting Diagnosis Syncope DS: Discharge Diagnosis Discharge Diagnosis (1) Syncope: Code(s): R55 - Syncope and collapse Status: Acute DS: Summary Hospital Course Hospital Course: HPi per admitting provider: 65-year-old female past medical history of hyperlipidemia and duct cell carcinoma presents the hospital syncope. Patient was standing iron in close when all of sudden she became dizzy and passed out. Patient states that the more she did not eat however at the time she was not feeling hungry. Patient states that sometime she gets dizzy with yoga and Pilates. Patient still complains of severe weakness however dizziness has improved. Denies nausea vomiting fever chills. Lab work shows elevated glucose at 164,, CBC, BMP within normal limits, urinary toxicology negative ethanol level negative, EKG shows sinus rhythm with minimal ST depression. Head CT with no acute findings, neck CT with no acute findings. Patient was seen at [facility] she firmly stated there was no prior episode and denies any chest pain, SOB, vomiting, abd pain or diarrhea and no change in oral intake and no new medications. ECHO showed normal ecam, EKG showed NSR with no acute CTT-T changes. patient was evaluated by cardiology and he recommended event monitor. I discussed with cardiology and patient discharged to follow up with cardiology for vent monitor placement. Orthostatic vitals were normal and no symptoms reoccurence while admitted F/u with PCP in 3-5 days and f/u with cardiology as instructed Time Spent with Patient Time attestation: Total time spent providing and/or coordinating discharge services: Discharge Plan Discharge Attending physician on discharge: Paris Boyle Consulting providers: Triston Varner; Viet Jaramillo Discharging Clinician: Paris Boyle Anticipated Discharge Date/Time: 08/17/25 15:56 Patient Disposition: Home Activity: as tolerated Diet: as tolerated and heart healthy Discharge Instructions: Patient will follow up cardiology for event monitor and ECHO report, per cardiology Patient Instructions: Antibiotic Form Patient Language: Mohawk Stand Alone Forms: General Discharge Information Follow-up/Referrals: Nataly, Benjie [Other] Referral Note: F/u with PCP in 3-5 days Viet Jaramillo MD [Physician, Cardiology] Referral Note: F/u cardiology as instructed Discharge Medications: Continued rosuvastatin 10 mg tablet 10 mg PO DAILY multivitamin [Daily Multi-Vitamin] Tablet 1 tablet PO DAILY valacyclovir 1 gram tablet 1,000 mg PO DAILY PRN (Reason: Herpes flare ups ) Date of admission: 08/16/25 15:03 Primary Care Provider: Benjie Miranda Admitting Provider: Fabiana Dumas Attending physician on admission: Fabiana Dumas Condition: Improved
== END 2025-08-17 16:52 | disposition home or self-care (01) ==
LOC: ANHED 15:14 → ANH2MED 08-17 12:38
PROVIDERS: Emergency Medicine; Nurse Practitioner Gerontology; Admitting Provider General Practice; Emergency Provider Emergency Medicine; Visit Provider Internal Medicine
DX: R55 Syncope and collapse (principal); R73.9 Hyperglycemia, unspecified; E78.5 Hyperlipidemia, unspecified; Z82.49 Family history of ischemic heart disease and other diseases of the circulatory system; Z83.438 Family history of other disorder of lipoprotein metabolism and other lipidemia; Z80.8 Family history of malignant neoplasm of other organs or systems; Z82.3 Family history of stroke
CPT/HCPCS: 36415; 70450; 71045; 72125; 80048; 80053; 80307; 81003; 82077; 82550; 83036; 84443; 84484; 85025; 85380; 85610; 85730; 93005; 93306; 96375; 99285; A9270; G0378; J2405; J3360; J7030